=== PATIENT | male | born 1955 | race Caucasian/White ===

== ENCOUNTER 2017-08-22 08:52 | Emergency (ER) | payer OTHER ==
[2017-08-22 09:10] VITALS: BP 144/94
--- NOTE | 2017-08-22 09:31 | RAD ---
HISTORY: Right ankle trauma COMPARISONS: None VIEWS: 3, Frontal, lateral, and oblique views of the right ankle FINDINGS: BONE DENSITY: Normal. BONES: There is no displaced fracture. JOINTS: There is no arthropathy. ALIGNMENT: There is no dislocation. SOFT TISSUES: Unremarkable. OTHER FINDINGS: None. IMPRESSION: NO ACUTE OSSEOUS INJURY. IF SYMPTOMS PERSIST, RECOMMEND REPEAT IMAGING.
--- NOTE | 2017-08-22 09:47 | UC ---
Lower Extremity/Ankle HPI - HPI Summary HPI Summary: right ankle pain x 10 days twisted his right ankle 10 days ago + pain and swelling, not much improvement since the injury - History of Current Complaint Chief Complaint: UCLowerExtremity Stated Complaint: RIGHT ANKLE COMPLAINT Time Seen by Provider: 08/22/17 08:58 Hx Obtained From: Patient Onset/Duration: Sudden Onset, Lasting Days - 10, Still Present Severity Initially: Moderate Severity Currently: Moderate Aggravating Factor(s): Standing, Ambulation Alleviating Factor(s): Rest, Elevation Able to Bear Weight: Yes - Allergies/Home Medications Allergies/Adverse Reactions: Allergies Allergy/AdvReac Type Severity Reaction Status Date / Time Infliximab [From Remicade] Allergy Rash Verified 08/22/17 09:04 PMH/Surg Hx/FS Hx/Imm Hx - Additional Past Medical History Additional PMH: arthritis - Surgical History Surgical History: None - Family History Known Family History: Positive: Hypertension - Social History Alcohol Use: Occasionally Substance Use Type: None Smoking Status (MU): Never Smoked Tobacco - Immunization History Most Recent Influenza Vaccination: June 2016 Review of Systems Constitutional: Negative Skin: Negative Eyes: Negative ENT: Negative Respiratory: Negative Cardiovascular: Negative Is Patient Immunocompromised?: No All Other Systems Reviewed And Are Negative: Yes Physical Exam Triage Information Reviewed: Yes Appearance: Well-Appearing, No Pain Distress, Well-Nourished Vital Signs: Initial Vital Signs Temp 97.9 F 08/22/17 08:55 Pulse 70 08/22/17 08:55 Resp 18 08/22/17 08:55 BP 144/94 08/22/17 08:55 Eyes: Positive: Conjunctiva Clear ENT: Positive: Normal ENT inspection, Hearing grossly normal, Pharynx normal Neck exam: Normal Neck: Positive: Supple, Nontender Respiratory: Positive: Chest non-tender, Lungs clear, Normal breath sounds Cardiovascular: Positive: RRR, No Murmur, Pulses Normal Musculoskeletal: Positive: Other: - right ankle : no swellikng, no erythema, diffuse tenderness, limited rom on plantar flexion and dorsi flexion . limited strength Lower Extremity Course/Dx - Differential Dx/Diagnosis Provider Diagnoses: right ankle sprain Discharge - Discharge Plan Condition: Stable Disposition: HOME Patient Education Materials: Ankle Sprain (ED) Referrals: Cl Dykes DO [Primary Care Provider] - 7 Days
--- OUTSIDE RECORDS SUMMARY | 2017-08-22 13:38 | XMS REPORT | Continuity of Care Document ---
:1955 Author Organization [facility] Address [address], [place] [phone] Phone Care Team Providers Name Role Phone Cl Dykes DO Unavailable Unavailable Luz Wahl Unavailable Unavailable Allergies, Adverse Reactions, Alerts Substance Reaction Severity Status infliximab rash Unknown Active Medications Medication Instructions Dosage Effective Dates Status Comments (start - stop) folic acid 1 mg TAKE TWO TABLETS BY - Active tablet MOUTH EVERY DAY methotrexate sodium take 5 Tablet by 12.5 MG - Active 2.5 mg tablet oral route every week ORENCIA 250 mg IV infuse (750MG) by - Active Solution intravenous route every 4 weeks butalbital-acetamino take 1 Capsule by Not Available - Active phen-caffeine 50 oral route 4 times mg-300 mg-40 mg every day as needed capsule Qvar 40 inhale 2 puff by 80 MCG - Active mcg/actuation inhalation route 2 Metered Aerosol oral times every day inhaler latanoprost 0.005 % instill 1 drop by Not Available - Active Eye Drops ophthalmic route every day into affected eye(s) in the evening ibuprofen 200 mg Cap take 1 capsule 200 MG - Active (200MG) by oral route every 6 hours as needed as needed Problems Condition Effective Dates (start - stop) Clinical Status Body mass index (BMI) 24.0-24.9, adult - Rheumatoid arthritis w/o rheumatoid factor of multiple sites Rheumatoid arthritis w/o rheumatoid factor of multiple sites Other chcf drug therapy Rheumatoid arthritis w/o rheumatoid factor of multiple sites Other long term care administrator drug therapy Dry eye syndrome of bilateral lacrimal glands Rheumatoid arthritis w/o rheumatoid factor of multiple sites Other chcf drug therapy Rheumatoid arthritis w/o rheumatoid factor of multiple sites Other long term care administrator drug therapy Dry eye syndrome of bilateral lacrimal glands Rheumatoid arthritis Rheumatoid arthritis Rheumatoid arthritis w/o rheumatoid factor of multiple sites Rheumatoid arthritis w/o rheumatoid factor of multiple sites Other long term care administrator drug therapy Dry eye syndrome of bilateral lacrimal glands Rheumatoid arthritis w/o rheumatoid factor of multiple sites Rheumatoid arthritis w/o rheumatoid factor of multiple sites Other chcf drug therapy Dry eye syndrome of bilateral lacrimal glands Rheumatoid arthritis, unspecified Other chcf drug therapy Rheumatoid arthritis Rheumatoid arthritis w/o rheumatoid factor of multiple sites Other chcf drug therapy Dry eye syndrome of bilateral lacrimal glands Rheumatoid arthritis w/o rheumatoid factor of multiple sites Rheumatoid arthritis w/o rheumatoid factor of multiple sites Rheumatoid arthritis w/o rheumatoid factor of multiple sites Other long term care administrator drug therapy Pain in lt ankle Rheumatoid arthritis w/o rheumatoid factor of multiple sites Other chcf drug therapy Rheumatoid arthritis w/o rheumatoid factor of multiple sites Other chcf drug therapy Dry eye syndrome of bilateral lacrimal glands Rheumatoid arthritis w/o rheumatoid factor of multiple sites Other long term care administrator drug therapy Rheumatoid arthritis w/o rheumatoid factor of multiple sites Rheumatoid arthritis w/o rheumatoid factor of multiple sites Other chcf drug therapy Dry eye syndrome of bilateral lacrimal glands Pain in lt ankle Rheumatoid arthritis w/o rheumatoid factor of multiple sites Rheumatoid arthritis w/o rheumatoid factor of multiple sites Dry eye syndrome of bilateral lacrimal glands Other long term care administrator drug therapy Rheumatoid arthritis w/o rheumatoid factor of multiple sites Rheumatoid arthritis w/o rheumatoid factor of multiple sites Rheumatoid arthritis w/o rheumatoid factor of multiple sites Rheumatoid arthritis w/o rheumatoid factor of multiple sites Rheumatoid arthritis Rheumatoid arthritis w/o rheumatoid factor of multiple sites Rheumatoid factor negative - Active Neck pain - Active Rotator cuff tear - Active Rheumatoid arthritis - Active Procedures Procedure Date CHEMO, IV INFUSION, 1 HR Abatacept injection (Orencia) 10MG Normal saline solution infus Results Test Name Date and Time Measure Units Reference Range Abnormal Flag Comments Unknown Advance Directives Directive Yes / No Effective Date File Name Unknown Encounters Encounter Practice Location Reason(s) Diagnoses Date Provider Care Team Description For Visit Members Arthritis Arthritis Rheumatoid [facility] arthritis w/o MD Varghese. Provider: [facility] rheumatoid 5794 [facility], [facility], [address] multiple sites [facility] [place], [place], 200, [place], [place], [id number], [place], [address]. [id number], [place]. tel:+ [place] tel:+ [phone] tel:+ [phone] Arthritis Arthritis Nov- Ramiro MITCHELL [facility] 9 [place]. 5794 Provider: Kim Alvarez 7 [facility], 5794 PLLC [place], [address] [place] [address], [facility], [place], 200, [place], [id number], [place], [address]. [id number], tel:+ tel:+ [place] [phone] tel:+ [phone] Arthritis Arthritis Rheumatoid Jul- [facility] arthritis w/o MD Varghese. Provider: Kim vivar 7 5794 Luz Meneses, [facility], 5794 PLLC factor of [address], [facility], [place], 200, [place], [place], [id number], [place], [address]. [id number], [place]. tel:+ [place] tel:+ [phone] tel:+ [phone] Arthritis Arthritis Rheumatoid Michelle Fernando [facility] arthritis w/o Kylee Mcclendon Provider: Kim vivar 7 5794 [facility], 5794 PLLC factor of [facility], [address] [place], sitesOther [place], [address] [place], chcf drug [place], [facility], therapyBody [id number], Eye Center, [id number], mass index [place]. [place], (BMI) tel:+[phone] [place], [address]. tel:+[phone] 24.0-24.9, 977234 tel:[phone] adult [id number] ring Provider: Luz Meneses, [address] [place] [address] 200, [place], [address]. tel:[phone] Arthritis Arthritis Rheumatoid Ramiro MITCHELL Referring [facility] arthritis w/o La. 5794 Provider: Kim Alvarez [address], [facility], 5794 PLLC factor of [place], 739 [facility] multiple sites [place], [address] [place], [place], 200, [place], [id number], [place], [address]. [id number], tel:+[phone] tel:[phone] [place] 730281 572097 tel:[phone] Arthritis Arthritis Rheumatoid Ramiro MITCHELL Referring [facility] arthritis w/o La. 5794 Provider: Kim [address], [facility], 5794 PLLC factor of [place], 739 [facility] multiple sites [place], [address] [place], [place], 200, [place], [id number], [place], [address]. [id number], tel:+[phone] tel:+[phone] [place] [phone] 727220 tel:[phone] Arthritis Arthritis Rheumatoid Juliana TRANSCRIPTION COORDINATOR-C Consulting [facility] Provider: Kim [address] [facility], 5794 PLLC factor of [place], [facility] multiple [place], 1160 [place], sitesOther [place], [facility] [place], chcf drug [id number], [place], therapyDry eye . [facility], [id number], syndrome of tel:+[phone] [place], [place] bilateral 392683 [place], [address]. tel:+[phone] lacrimal tel:[phone] glands [id number] ring Provider: Luz Meneses, 739 [facility] 200, [place], [address]. tel:[phone] Arthritis Arthritis Rheumatoid Ramiro MITCHELL Referring [facility] arthritis w/o La. 5794 Provider: Kim Alvarez [address], PLLC, 5794 PLLC factor of [place], 739 [facility] multiple sites [place], [address] [place], [place], 200, [place], [id number], [place], [address]. [id number], tel:[phone] tel:+[phone] [place] 510608 287050 tel:[phone] Arthritis Arthritis Rheumatoid Alexi- Romaine Consulting [facility] arthritis w/o 7 PA-C Provider: Kim Alvarez [address] [facility], 5794 PLLC factor of 5794 [facility] 1160 [place], sitesOther [place], [facility] [place], long term care administrator drug [place], [place], therapy [place], [facility], [id number], [id number], [place], [address]. tel:[phone] tel:+[phone] tel:[phone] [id number] ring Provider: [facility], [address] [place] [address] 200, [place], [address]. tel:[phone] Arthritis Arthritis Rheumatoid January- Ramiro MITCHELL Referring [facility] arthritis w/o 0- La. 5794 Provider: Kim Alvarez [address], PLLC, 5794 PLLC factor of [place], 739 [facility] multiple sites [place], [address] [place], [place], 200, [place], [id number], [place], [address]. [id number], tel:+[phone] tel:[phone] [place] 348374 994307 tel:[phone] Arthritis Arthritis Rheumatoid January-0 Juliana TRANSCRIPTION COORDINATOR-C Consulting [facility] arthritis w/o 2- [place]. 5794 Provider: Kim Alvarez [address] [facility], 5794 PLLC factor of [place], [facility] multiple [place], 1160 [place], sitesOther [place], [address] [place], long term care administrator drug [id number], [place], therapyDry eye [place]. [facility], [id number], syndrome of tel:[phone] [place], [place] 057146 [place], [address]. tel:[phone] lacrimal tel:[phone] glands [id number] ring Provider: Luz Meneses, [address] 200, [place], [address]. tel:[phone] Arthritis Arthritis Rheumatoid Apr-0 Ramiro MITCHELL Referring [facility] arthritis w/o La. 5794 Provider: Kim Alvarez [address], PLLC, 5794 PLLC factor of [place], [facility] multiple sites [place], [address] [place], [place], 200, [place], [id number], [place], [address]. [id number], tel:[phone] tel:+[phone] [place] 908114 703579 tel:[phone] Arthritis Arthritis Rheumatoid Mar-0 Scott Consulting [facility] arthritis w/o DESIREE Diaz. Provider: Kim [facility] 7 57 [facility], 5794 PLLC factor of [facility] multiple [place], 1160 [place], sitesDry eye [place], [address] [place], syndrome of [place], [place], bilateral [id number], Eye Center, [id number], lacrimal [place]. [place], [place] glandsOther tel:+[phone] [place], [address]. tel:[phone] long term care administrator drug [id number] tel:[phone] therapy [id number] ring Provider: Luz Meneses, [address] 200, [place], [address]. tel:[phone] Arthritis Arthritis Rheumatoid Feb-0 Ramiro MITCHELL Referring [facility] arthritis w/o La. 5794 Provider: Kim Alvarez [address], PLLC, 5794 PLLC factor of [place], [facility] multiple sites [place], [address] [place], [place], 200, [place], [id number], [place], [address]. [id number], tel:+ tel:+[phone] [place] [phone] 719383 tel:[phone] Arthritis Arthritis Rheumatoid Juliana TRANSCRIPTION COORDINATOR-C [facility] arthritis w/o 0-201 [place]. 5794 Provider: Kim Alvarez rheumatoid 7 [facility], 5794 PLLC factor of [place], [facility], [facility] multiple [place], 1160 [place], sitesOther [place], [address] [place], long term care administrator drug [id number], [place], therapyDry eye [place]. [facility], [id number], syndrome of tel:+315 [place], [place] bilateral 885770 [place], [address]. tel:+315 lacrimal tel:[phone] glandsPain in [id number] lt ankle ring Provider: Luz Meneses, 7[facility] 200, [place], [address]. tel: [phone] Arthritis Arthritis Rheumatoid [facility] arthritis w/o 3-201 MD Varghese. Provider: Kim Alvarez rheumatoid 6 5794 Luz Meneses, PLLC, 5794 PLLC factor of [facility] 739 [facility], [facility], [place], 200, [place], [place], [place], [place], [id number], [place], [address]. [id number], [place]. tel: [place] tel:[phone] tel:[phone] Arthritis Arthritis Rheumatoid Ramiro MITCHELL [facility] arthritis w/o 5201 [place]. 5794 Provider: Kim Alvarez rheumatoid 6 [facility], 5794 PLLC factor of [place], [facility], [facility] multiple [place], 1160 [place], sitesOther [place], [address] [place], long term care administrator drug [id number], [place], therapy [place]. [facility], [id number], tel:+[phone] [place], [place] 044682 [place], [address]. tel:+315 tel:[phone] [id number] ring Provider: Luz Meneses, 739 [facility] 200, [place], [address]. tel:[phone] Arthritis Arthritis Rheumatoid Antonio MITCHELL Referring Health Health arthritis Joao. Provider: Kim Alvarez 6 5794 Luz Meneses, PLLC, 5794 PLLC [facility] 739 [facility], [address] [place], [place], 200, [place], [place], [place], [id number], [place], [address]. [id number], [place]. tel:[phone] [place] tel:[phone] tel:[phone] Arthritis Arthritis Rheumatoid Juliana TRANSCRIPTION COORDINATOR-C Consulting [facility] Health arthritis w/o [place]. 5794 Provider: Kim Alvarez [address] [facility], 5794 PLLC factor of [place], [facility], [facility] multiple [place], 1160 [place], sitesOther [place], [address] [place], chcf drug [id number], [place], therapyDry eye [place]. [facility], [id number], syndrome of tel:[phone] [place], [place] 792931 [place], [address]. tel:[phone] lacrimal tel:[phone] glands [id number] ring Provider: Luz [place], [facility] 200, [place], [address]. tel:[phone] Arthritis Arthritis Rheumatoid Ramiro MITCHELL Referring Health Health arthritis w/o [facility] [place]. 5794 Provider: Kim Alvarez [address] Luz Meneses, PLLC, 5794 PLLC factor of [place], 739 [facility] multiple sites [place], [address] [place], [place], 200, [place], [id number], [place], [address]. [id number], tel:[phone] tel:+[phone] [place] 517177 263745 tel:[phone] Arthritis Arthritis Rheumatoid Romaine Consulting Health Health arthritis w/o PA-C Provider: Kim Alvarez [address] [facility], 5794 PLLC factor of 5794 [facility], [facility] 1160 [place], sitesOther [place], [facility] [place], long term care administrator drug [place], [place], [place], [facility], [id number], [id number], [place], [address]. tel:+[phone] tel:+[phone] tel:[phone] [phone] [id number] ring Provider: Luz Meneses, John[address], [place], [address]. tel:[phone] Arthritis Arthritis Rheumatoid Ramiro MITCHELL Referring [facility] arthritis [facility] [place]. 5794 Provider: Kim [address] Gideon, PLLC, 5794 PLLC [place], 739 [facility] [place], [address] [place], [place], 200, [place], [id number], [place], [address]. [id number], tel:+[phone] tel:[phone] [place] [phone] 345893 tel:[phone] Arthritis Arthritis Rheumatoid Ramiro MITCHELL Consulting [facility] arthritis w/o La. 5794 Provider: Kim [address] [facility], 5794 PLLC factor of [place], [facility] [place], 1160 [place], [facility], [facility] [place], long term care administrator drug [id number], [place], therapyPain in [place]. Eye Center, [id number], lt ankle tel:+[phone] [place], [place] 963036 [place], [address]. tel:[phone] tel:[phone] [id number] ring Provider: Luz Meneses [address] 200, [place], [address]. tel:[phone] Arthritis Arthritis Rheumatoid Dec- Ramiro MITCHELL Referring [facility] arthritis w/o La. 5794 Provider: Kim [address] Luz Meneses, PLLC, 5794 PLLC factor of [place], [facility] multiple sites [place], [address] [place], [place], 200, [place], [id number], [place], [address]. [id number], tel:+[phone] tel:+[phone] [place] 230366 269446 tel:[phone] Arthritis Arthritis Rheumatoid Juliana TRANSCRIPTION COORDINATOR-C Consulting [facility] arthritis w/o [place]. 5794 Provider: Kim Alvarez [address] [facility], 5794 PLLC factor of [place], [facility], [facility] multiple [place], 1160 [place], sitesOther [place], [address] [place], long term care administrator drug [id number], [place], therapyDry eye [place]. [place], [id number], syndrome of tel:+[phone] [place], [place] bilateral 524682 [place], [address]. tel:+[phone] lacrimal tel:[phone] glands [id number] ring Provider: Luz Meneses, 7[facility] 200, [place], [address]. tel:[phone] Arthritis Arthritis Rheumatoid Ramiro MITCHELL Referring [facility] arthritis w/o La. 5794 Provider: Kim Alvarez [address] Luz Meneses, [facility], 5794 PLLC factor of [place], 739 [facility] multiple sites [place], [address] [place], [place], 200, [place], [id number], [place], [address]. [id number], tel:+[phone] tel:+[phone] [place] 269040 026639 tel:[phone] Arthritis Arthritis Rheumatoid Juliana TRANSCRIPTION COORDINATOR-C Consulting [facility] arthritis w/o [place]. 5794 Provider: Kim Alvarez [address] [facility], 5794 PLLC factor of [place], [facility], [facility] multiple [place], 1160 [place], sitesOther [place], [address] [place], chcf drug [id number], [place], therapyDry eye [place]. [facility], [id number], syndrome of tel:+[phone] [place], [place] bilateral 247175 [place], [address]. tel:+[phone] lacrimal tel:[phone] glands [id number] ring Provider: Luz Meneses, [address] 200, [place], [address]. tel:[phone] Arthritis Arthritis Rheumatoid Ayesha MITCHELL Referring [facility] arthritis Guilherme. Provider: Kim Alvarez 5 5794 Luz Meneses, PLLC, 5794 PLLC [facility] 739 [facility], [address] [place], [place], 200, [place], [place], [place], [place], [id number], [place], [address]. [id number], [place]. tel:+[phone] [place] tel:[phone] tel:[phone] Arthritis Arthritis Rheumatoid Jul- Juliana TRANSCRIPTION COORDINATOR-C Consulting [facility] arthritis w/o 0 [place]. 5794 Provider: Kim Alvarez [facility] 5 [facility], 5794 PLLC factor of [place], [facility], [facility] multiple [place], 1160 [place], [facility] [place], [address] [place], long term care administrator drug [id number], [place], therapyDry eye [place]. [facility], [id number], syndrome of tel:+[phone] [place], [place] bilateral 138564 [place], [address]. tel:+315 lacrimal tel:[phone] glands [id number] ring Provider: Luz Meneses, John[address], [place], [address]. tel:[phone] Arthritis Arthritis Rheumatoid Nov-0 Husam Referring [facility] arthritis MD Varghese. Provider: Kim Alvarez 5 5794 Luz Meneses, PLLC, 5794 PLLC [facility] 739 Sabino [facility] [place], [address] [place], [place], 200, [place], [place], [place], [place], [id number], [place], [address]. [id number], [place]. tel:+3154 [place] tel:[phone] tel:[phone] Arthritis Arthritis Rheumatoid Oct-0 Juliana TRANSCRIPTION COORDINATOR-C Consulting [facility] arthritis, [place]. 5794 Provider: Kim Alvarez [facility] 5 [facility], 5794 PLLC er chcf [place], [facility], [facility] drug therapy [place], 1160 [place], [place], [facility], [id number], [facility], [place]. Eye Center, [id number], tel:+[phone] [facility] 329099 [place], [address]. tel:[phone] tel:[phone] [id number] ring Provider: Luz Meneses, John[address] 200, [place], [address]. tel:[phone] Arthritis Arthritis Dec-2 Juliana TRANSCRIPTION COORDINATOR-C Consulting [facility] [place]. 5794 Provider: Kim Alvarez [address] [place] [address] [facility], 5794 [facility], [facility], [facility] [place], 1160 [place], [place], [facility] [place], [id number], [facility], [place]. [facility], [id number], tel:+[phone] [facility] [place] 14[address] [place], [address]. tel:+[phone] tel:[phone] [id number] ring Provider: Marcelino Velasquez [address], [place], [address]. tel:[phone] Arthritis Arthritis Mar-0 Juliana TRANSCRIPTION COORDINATOR-C Referring [facility] [place]. 5794 Provider: Kim Alvarez [address] [place] [address] Luz Meneses, [facility], 5794 [facility], [facility], [address] [place], [place], 200, [place], [id number], [place], [address]. [id number], tel:[phone] tel:[phone] tel:[phone] Arthritis Arthritis Ramiro MITCHELL Referring [facility] 4 [facility] [place]. 5794 Provider: [facility] 3 [facility], [facility], 5794 [facility], 739 [facility], [facility], [place], 200, [place], [id number], [place], [address]. [id number], tel:+[phone] tel:+[phone] [place] 847186 005616 tel:[phone] Arthritis Arthritis May-3 Juliana TRANSCRIPTION COORDINATOR-C Referring [facility] 0 [facility]. 5794 Provider: [facility] 3 [facility], [facility], 5794 [facility], 739 [facility], [facility], [place], 200, [place], [id number], [place], [address]. [id number], tel:[phone] tel:+[phone] [place] 925149 618149 tel:[phone] Arthritis Arthritis Apr-0 Juliana TRANSCRIPTION COORDINATOR-C Referring [facility] 4 [facility]. 5794 Provider: [facility] 3 [facility], [facility], 5794 [facility], 739 [facility], [place], 200, [place], [id number], [place], [address]. [id number], tel:[phone] tel:+[phone] [place] 908129 315077 tel:[phone] Arthritis Arthritis Jun- Juliana TRANSCRIPTION COORDINATOR-C Referring [facility] 8201 [facility]. 5794 Provider: [facility] 2 [facility], [facility], 5794 [facility], 739 [facility], [place], 200, [place], [id number], [place], [address]. [id number], tel:+[phone] tel:+[phone] [place] 009767 930467 tel:[phone] Arthritis Arthritis May-0 Ramiro MITCHELL Referring [facility] Health 3-201 [facility] [place]. 5794 Provider: Associates [facility] 1 [facility] Luz Meneses, [facility], 5794 [facility], 739 [address] [facility] [place], Oniele Ari[address] [place], [place], 200, [place], [id number], [place], [address]. [id number], tel:[phone] tel:[phone] tel:[phone] Family History Family Member Diagnosis Age At Onset Status Father Gout N Mother Osteoarthritis N Immunizations Vaccine Date Status Comments Influenza, injectable, completed - Completed reason: New quadrivalent, split virus, 18 years or older Afluria Quad Yet to receive Flu vaccine completed - Completed reason: Source Unspecified Yet to receive Flu vaccine completed - Completed reason: Other Provider Yet to receive Flu vaccine completed - Completed reason: Other Provider Not receiving Zoster completed - Completed reason: New Unable to have Zoste completed - Completed reason: New Never had completed - Completed reason: Source Unspecified Never had completed - Completed reason: Source Unspecified Influenza, injectable, completed - Completed reason: Other trivalent, split virus, 4 years Provider and older, Fluvirin Payers Payer name Insurance type Covered libertarian ID Authorization(s) [employer] [id number] [employer] No Referral Required CI [id number] Social History Type Description Quantity Date Captured Alcohol Use Details No Caffeine Use Details No Tobacco Use Status No Smoking Status No Vital Signs Date / Height Weight BMI Pulse Blood Temperature Respiratory Body Head BMI Time: Rate Pressure Rate Surface Circumference percentile Area 73.00 188.00 24.8 60 128/70 97.20 F 16 /min 2./ in lbs 0 /min mm[Hg] meter(2) 09:13: kg/m 00 eter (2) 62 126/64 16 /min -2017/ /min mm[Hg] 10:02: 00 Chief Complaint And Reason For Visit Unknown Chief Complaint And Reason For Visit Reason For Referral Reason For Referral Unknown Plan Of Care Date Type Action Status Goal Lifestyle education regarding diet completed Referral Ordered: ordered *CHEST X-RAY, 2 VIEWS, FRONTAL, LATERAL Appointment John Hackett BOOKED Appointment John Hackett BOOKED Date Type Problem Goal Intervention Status Start Date Unknown. History Of Present Illness Encounter Date Complaint History Of Present Illness This patient has no known history of present illness Functional Status Encounter Date Functional Assessment Cognitive Assessment Unknown Medications Administered Medication Instructions Dosage Effective Dates (start - stop) Status Comments Drug Treatment Unknown Instructions Date Instruction Additional Information Lifestyle education regarding diet Related to Body mass index ( BMI) 24.0-24.9, adult Reviewed importance of compliance/adherence to medications prescribed Avoid live vaccines Conservative medical care measures discussed. Moderate activities regarding symptomatic joints. Labs ordered to check disease activity. Labs ordered to check blood counts, liver and kidney functions to monitor safety of medication. Daily range of motion exercises for symptomatic joints recommended. Discussed / Reviewed Labs hold medication and call if any side effect develops continue same medication plan call if symptoms worsen Discussed the need to hold DMARDS/Biologics before and after surgery/procedure. Risks/benefits of medications reviewed Labs ordered to check disease activity. Labs ordered to check blood counts, liver and kidney functions to monitor safety of medication. Discussed / Reviewed Labs continue same medication plan call if symptoms worsen Reviewed importance of compliance/adherence to medications prescribed Avoid live vaccines Exercise more Discussed importance of holding DMARDs/ biologics if patient develops an infection and to notify the treating physician Stretching Reviewed importance of compliance/adherence to medications prescribed Diet: avoid alcohol Avoid live vaccines Exercise more Discussed importance of holding DMARDs/ biologics if patient develops an infection and to notify the treating physician Stretching Reviewed importance of compliance/adherence to medications prescribed Diet: avoid alcohol Avoid live vaccines Discussed importance of holding DMARDs/ biologics if patient develops an infection and to notify the treating physician Stretching Reviewed importance of compliance/adherence to medications prescribed Diet: avoid alcohol Avoid live vaccines Discussed importance of holding DMARDs/ biologics if patient develops an infection and to notify the treating physician Stretching Reviewed importance of compliance/adherence to medications prescribed Avoid live vaccines Exercise more Discussed importance of holding DMARDs/ biologics if patient develops an infection and to notify the treating physician Stretching Diet: avoid alcohol Risks/benefits of medications reviewed Diagnostic studies discussed/reviewed: Labs Labs ordered to check disease activity. Labs ordered to check blood counts, liver and kidney functions to monitor safety of medication. Discussed / Reviewed Labs continue same medication plan call if symptoms worsen Reviewed importance of compliance/adherence to medications prescribed Avoid live vaccines Discussed importance of holding DMARDs/ biologics if patient develops an infection and to notify the treating physician Avoid live vaccines Exercise more Discussed importance of holding DMARDs/ biologics if patient develops an infection and to notify the treating physician Stretching Reviewed importance of compliance/adherence to medications prescribed
--- OUTSIDE RECORDS SUMMARY | 2017-08-22 13:38 | XMS REPORT | Continuity of Care Document ---
:1955 Author Organization [facility] Address [address], [place] [id number] Phone Care Team Providers Name Role Phone [...] w/o rheumatoid factor of multiple sites Other technician terminal and repeater drug therapy Rheumatoid arthritis w/o rheumatoid factor of multiple sites Other shelter drug therapy Dry eye syndrome of bilateral lacrimal glands Rheumatoid arthritis w/o rheumatoid factor of multiple sites Other technician terminal and repeater drug therapy Rheumatoid arthritis w/o rheumatoid factor of multiple sites Rheumatoid arthritis w/o rheumatoid factor of multiple sites Other technician terminal and repeater drug therapy Dry eye syndrome of bilateral lacrimal glands Rheumatoid arthritis Rheumatoid arthritis Rheumatoid arthritis w/o rheumatoid factor of multiple sites Rheumatoid arthritis w/o rheumatoid factor of multiple sites Other technician terminal and repeater drug therapy Dry eye syndrome of bilateral lacrimal glands Rheumatoid arthritis w/o rheumatoid factor of multiple sites Rheumatoid arthritis w/o rheumatoid factor of multiple sites Other shelter drug therapy Dry eye syndrome of bilateral lacrimal glands Rheumatoid arthritis w/o rheumatoid factor of multiple sites Other shelter drug therapy Rheumatoid arthritis, unspecified Other technician terminal and repeater drug therapy Rheumatoid arthritis Rheumatoid arthritis w/o rheumatoid factor of multiple sites Other shelter drug therapy Dry eye syndrome of bilateral lacrimal glands Rheumatoid arthritis w/o rheumatoid factor of multiple sites Rheumatoid arthritis w/o rheumatoid factor of multiple sites Rheumatoid arthritis w/o rheumatoid factor of multiple sites Other shelter drug therapy Pain in lt ankle Rheumatoid arthritis w/o rheumatoid factor of multiple sites Other shelter drug therapy Rheumatoid arthritis w/o rheumatoid factor of multiple sites Other technician terminal and repeater drug therapy Dry eye syndrome of bilateral lacrimal glands Rheumatoid arthritis w/o rheumatoid factor of multiple sites Rheumatoid arthritis w/o rheumatoid factor of multiple sites Other shelter drug therapy Dry eye syndrome of bilateral lacrimal glands Pain in lt ankle Rheumatoid arthritis w/o rheumatoid factor of multiple sites Rheumatoid arthritis w/o rheumatoid factor of multiple sites Dry eye syndrome of bilateral lacrimal glands Other technician terminal and repeater drug therapy Rheumatoid arthritis w/o rheumatoid factor of multiple sites Rheumatoid arthritis w/o rheumatoid factor of multiple sites Rheumatoid arthritis w/o rheumatoid factor of multiple sites Rheumatoid arthritis w/o rheumatoid factor of multiple sites Rheumatoid arthritis w/o rheumatoid factor of multiple sites Rheumatoid arthritis Rheumatoid factor negative - Active Neck pain - Active Rotator cuff tear - Active Rheumatoid arthritis - Active Procedures Procedure Date Unknown Results Test Name Date and Time Measure Units Reference Range Abnormal Flag Comments Unknown Advance Directives Directive Yes / No Effective Date File Name Unknown Encounters Encounter Practice Location Reason(s) Diagnoses Date Provider Care Team Description For Visit Members Arthritis Arthritis Rheumatoid [facility] arthritis w/o MD Varghese. Provider: Kim Alvarez rheumatoid 7 5794 [facility], [facility], [address] multiple sites [place], [facility], [place], 200, [place], [place], [place], [id number], [place], [address]. [id number], [place]. tel:+ [place] tel:+ [phone] tel:+ [phone] Arthritis Arthritis Ramiro MITCHELL [facility] [place]. 5794 [facility] 7 [facility], 5794 PLLC [facility] [place], [place], [place], [place], [id number], [place], [place]. [id number], tel:+[phone] [place] [phone] tel:[phone] Arthritis Arthritis Ramiro MITCHELL [facility] [place]. 5794 Provider: Kim [facility] 7 [facility], PLLC, 5794 PLLC [place], 739 [facility], [facility], [place], 200, [place], [id number], [place], [address]. [id number], tel:+ tel:+[phone] [place] [phone] tel:[phone] Arthritis Arthritis Rheumatoid [facility] arthritis w/o MD Varghese. Provider: [facility] Associates rheumatoid 7 5794 [facility], [facility], 5794 PLLC factor of [facility] 739 [facility] sites [place], [facility], [place], 200, [place], [place], [id number], [place], [address]. [id number], [place]. tel:+ [place] tel:+ [phone] tel:+ [phone] Arthritis Arthritis Rheumatoid [facility] arthritis w/o Kylee Mcclendon Provider: Associates Associates rheumatoid 7 5794 [facility], 5794 PLLC factor of [facility] [address], 1160 [place], sitesOther [place], [address] [place], shelter drug [place], [place], therapyBody [id number], [facility], [id number], mass index [place]. [place], (BMI) tel:+[phone] [place], [address]. tel:[phone] 24.0-24.9, 656498 tel:[phone] adult [id number] ring Provider: Luz Meneses, Marcelino [address], [place], [address]. tel:[phone] Arthritis Arthritis Rheumatoid Ramiro MITCHELL Referring [facility] arthritis w/o [place]. 5794 Provider: Kim Alvarez [address] [place], [facility], 5794 PLLC factor of [place], [address] [place] [address] multiple sites [place], Ave [address] [place], [place], 200, [place], [id number], [place], [address]. [id number], tel:+[phone] tel:[phone] [place] 176199 887302 tel:[phone] Arthritis Arthritis Rheumatoid Ramiro MITCHELL Referring [facility] arthritis w/o [place]. 5794 Provider: Kim [address], [facility], 5794 PLLC factor of [place], [address] [place] [address] multiple sites [place], [address] [place], [place], 200, [place], [id number], [place], [address]. [id number], tel:+[phone] tel:[phone] [place] [phone] tel:[phone] Arthritis Arthritis Rheumatoid Apr- Juliana SIGN LANGUAGE TEACHER-C Consulting [facility] arthritis w/o [facility] 5794 Provider: Kim [address] [facility] PLL, 5794 PLLC factor of [place], [facility] multiple [place], 1160 [place], sitesOther [place], [address] [place], technician terminal and repeater drug [id number], [place], therapyDry eye . [facility] Center, [id number], syndrome of tel:+1-3154 [place], [place] 6[address]13 [place], [address]. tel:+[phone] lacrimal tel:[phone] glands [id number] ring Provider: Luz Meneses, Marcelino [address], [place], [address]. tel:[phone] Arthritis Arthritis Rheumatoid Mar- Ramiro MITCHELL Referring [facility] arthritis w/o 5-201 [place]. 5794 Provider: Kim Alvarez [address] Luz Meneses, PLLC, 5794 PLLC factor of [address] multiple sites [place], [facility] [place], 200, [place], [id number], [place], [address]. [id number], tel:+[phone] tel:[phone] [place] 148410 618731 tel:[phone] Arthritis Arthritis Rheumatoid Feb- Romaine Consulting [facility] arthritis w/o 7 PA-C Provider: Kim Rojas Brayden. [facility], 5794 PLLC factor of 5794 [facility] 1160 [place], [facility], [facility] [place], shelter drug [place], [place], therapy [place], [facility], [id number], [id number], [place], [address]. tel:[phone] tel:+[phone] tel:[phone] [id number] ring Provider: Luz Meneses, [address] [place] [address] 200, [place], [address]. tel:[phone] Arthritis Arthritis Rheumatoid January-[address] [facility] arthritis w/o 0-201 [place]. 5794 Provider: Kim Alvarez [address] [place], PLLC, 5794 PLLC factor of [address] multiple sites [place], Ave [facility] [place] [place], 200, [place], [id number], [place], [address]. [id number], tel:+[phone] tel:+[phone] [place] 830989 379955 tel:[phone] Arthritis Arthritis Rheumatoid January-0 Juliana SIGN LANGUAGE TEACHER-C Consulting [facility] arthritis w/o 2-201 [place]. 5794 Provider: Kim vivar [address] [place] [address] [facility], 5794 PLLC factor of [facility], [facility] multiple [place], 1160 [place], sitesOther [place], [address] [place], shelter drug [id number], [place], therapyDry eye [place]. [facility], [id number], syndrome of tel:+1-3154 [place], [place] 933537 [place], [address]. tel:+[phone] lacrimal tel:[phone] glands [id number] ring Provider: Luz Meneses, [address], [place], [address]. tel:[phone] Arthritis Arthritis Rheumatoid Apr-[address] [facility] arthritis w/o [place]. 5794 Provider: Kim vivar [address] [place] [address] Luz Meneses, PLLC, 5794 PLLC factor of [place], [address] [place] [address] sites [place], [address] [place], [place], 200, [place], [id number], [place], [address]. [id number], tel:+[phone] tel:[phone] [place] 260429 616451 tel:[phone] Arthritis Arthritis Rheumatoid Mar-[address] [facility] arthritis w/o DESIREE Diaz. Provider: Kim vivar 7 57 [facility], 5794 PLLC factor of [facility], [facility] multiple [place], 1160 [place], sitesDry eye [place], [address] [place], syndrome of [place], [place], bilateral [id number], Eye Center, [id number], lacrimal [place]. [place], [place] glandsOther tel:+[phone] [place], [address]. tel:[phone] technician terminal and repeater drug [id number] tel:[phone] therapy [id number] ring Provider: Luz Meneses, [address], [place], [address]. tel:[phone] Arthritis Arthritis Rheumatoid Feb-[address] [facility] arthritis w/o [place]. 5794 Provider: Kim Rojas [facility] Luz Meneses, PLLC, 5794 PLLC factor of [place], 739 [facility] multiple sites [place], [address] [place], [place], 200, [place], [id number], [place], [address]. [id number], tel:+[phone] tel:[phone] [place] 979888 659203 tel:[phone] Arthritis Arthritis Rheumatoid Juliana SIGN LANGUAGE TEACHER-C Consulting [facility] arthritis w/o 0201 [place]. 5794 Provider: Kim Alvarez rheumatoid 7 [facility], 5794 PLLC factor of [place], [facility], [facility] multiple [place], 1160 [place], sitesOther [place], [address] [place], technician terminal and repeater drug [id number], [place], therapyDry eye [place]. [facility], [id number], syndrome of tel:+1-3154 [place], [place] bilateral 425360 [place], [address]. tel:+[phone] lacrimal tel:[phone] glandsPain in [id number] lt ankle ring Provider: Luz Meneses, [address], [place], [address]. tel:[phone] Arthritis Arthritis Rheumatoid Kathie Referring [facility] arthritis w/o MD Varghese. Provider: Kim Alvarez rheumatoid 6 5794 [facility] [place], PLLC, 5794 PLLC factor of [facility] 739 [facility] multiple sites [place], [facility] [place], [place], 200, [place], [place], [place], [id number], [place], [address]. [id number], [place]. tel:+[phone] [place] tel:[phone] tel:[phone] Arthritis Arthritis Rheumatoid Ramiro MITCHELL Consulting [facility] arthritis w/o [place]. 5794 Provider: Kim Alvarez rheumatoid 6 [facility], 5794 PLLC factor of [place], [facility], [facility] multiple [place], 1160 [place], sitesOther [place], [address] [place], shelter drug [id number], [place], therapy [place]. [facility], [id number], tel:+[phone] [place], [place] 747[place], [address]. tel:[phone] tel:[phone] [id number] ring Provider: Luz Meneses, [address], [place], [address]. tel:[phone] Arthritis Arthritis Rheumatoid Antonio MITCHELL Referring [facility] arthritis Joao. Provider: Kim Alvarez 5794 Luz Meneses, [facility], 5794 PLLC [facility] 739 Sabino [facility], Ave [address] [place], [place], 200, [place], [place], [place], [id number], [place], [address]. [id number], [place]. tel:+[phone] [place] tel:[phone] tel:[phone] Arthritis Arthritis Rheumatoid Juliana MONTES DE OCA Consulting [facility] arthritis w/o [place]. 5794 Provider: Kim Alvarez [address] [facility], 5794 PLLC factor of [place], [facility], [facility] multiple [place], 1160 [place], sitesOther [place], [address] [place], shelter drug [id number], [place], therapyDry eye [place]. [facility], [id number], syndrome of tel:+[phone] [place], [place] bilateral 18[address]95 [place], [address]. tel:+[phone] lacrimal tel:[phone] [facility] [id number] ring Provider: Luz Meneses, [address], [place], [address]. tel:[phone] Arthritis Arthritis Rheumatoid Ramiro MITCHELL Referring [facility] arthritis w/o La. 5794 Provider: Kim Alvarez [address] Luz Meneses, [facility], 5794 PLLC factor of [place], 7[facility] multiple sites [place], [address] [place], [place], 200, [place], [id number], [place], [address]. [id number], tel:+[phone] tel:+[phone] [place] 206037 210064 tel:[phone] Arthritis Arthritis Rheumatoid Romaine Consulting [facility] arthritis w/o 2 PA-C Provider: Kim Al[place] [address] Brayden. [facility], 5794 PLLC factor of 5794 [facility], [facility] multiple [facility] 1160 [place], sitesOther [place], [address] [place], technician terminal and repeater drug [place], [place], therapy [place], [facility], [id number], [id number], [place], [address]. tel:+[phone] tel:+3154 tel:[phone] 113594Cttpb ring Provider: Marcelino Velasquez [address], [place], [address]. tel:[phone] Arthritis Arthritis Rheumatoid Ramiro MITCHELL Referring [facility] arthritis La. 5794 Provider: Kim Alvarez [address] [place] [address] Luz Meneses, PLLC, 5794 PLLC [place], 739 [facility] [place], [address] [place], [place], 200, [place], [id number], [place], [address]. [id number], tel:+[phone] tel:+[phone] [place] 300978 353920 tel:[phone] Arthritis Arthritis Rheumatoid Ramiro MITCHELL Consulting [facility] arthritis w/o La. 5794 Provider: Kim Alvarez [address] [facility], 5794 PLLC factor of [place], [facility] [place], 1160 [place], sitesOther [place], [address] [place], technician terminal and repeater drug [id number], [place], therapyPain in [place]. Eye [facility], [id number], lt ankle tel:+1-3154 [place], [place] 88[address] [place], [address]. tel:+[phone] tel:[phone] [id number] ring Provider: Marcelino Velasquez [address], [place], [address]. tel:[phone] Arthritis Arthritis Rheumatoid Dec- Ramiro MITCHELL Referring [facility] arthritis w/o 8201 [place]. 5794 Provider: Kim Alvarez [address] Luz [place], [facility], 5794 PLLC factor of [place], 739 [facility] multiple sites [place], Ave Ra[address] [place], [place], 200, [place], [id number], [place], [place], [address]. [id number], tel:+[phone] tel:+[phone] [place] 692671 463251 tel:[phone] Arthritis Arthritis Rheumatoid Nov- Juliana SIGN LANGUAGE TEACHER-C Consulting [facility] arthritis w/o [place]. 5794 Provider: Kim Alvarez [address] [facility], 5794 PLLC factor of [place], [facility], [facility] multiple [place], 1160 [place], sitesOther [place], [facility] [place], technician terminal and repeater drug [id number], [place], therapyDry eye . [facility], [id number], syndrome of tel:+1-3154 [place], [place] bilateral 989842 [place], [address]. tel:+[phone] lacrimal tel:[phone] glands [id number] ring Provider: Luz Gideon, 739 [facility] 200, [place], [address]. tel:[phone] Arthritis Arthritis Rheumatoid Ramiro MITCHELL Referring [facility] arthritis w/o 2 La. 5794 Provider: Kim Alvarez [address], PLLC, 5794 PLLC factor of [place], 739 [facility] multiple sites [place], [facility] [place], 200, [place], [id number], [place], [address]. [id number], tel:+[phone] tel:+[phone] [place] 902656 753869 tel:[phone] Arthritis Arthritis Rheumatoid Shin- Juliana SIGN LANGUAGE TEACHER-C Consulting [facility] arthritis w/o 5201 [place]. 5794 Provider: Kim Alvarez [address] [facility], 5794 PLLC factor of [place], [facility], [facility] multiple [place], 1160 [place], sitesOther [place], [facility] [place], technician terminal and repeater drug [id number], [place], therapyDry eye [place]. [facility], [id number], syndrome of tel:+1-3154 [place], [place] bilateral 777418 [place], [address]. tel:[phone] lacrimal tel:[phone] glands [id number] ring Provider: Marcelino Velasquez [address], [place], [address]. tel:[phone] Arthritis Arthritis Rheumatoid Ayesha MITCHELL Referring [facility] arthritis Guilherme. Provider: Kim Alvarez 5794 RUDOLPH VelasquezC, [address], [address] [place], [place], 200, [place], [place], [place], [id number], [place], [address]. [id number], [place]. tel:+[phone] [place] tel:[phone] tel:[phone] Arthritis Arthritis Rheumatoid Nov-3 Juliana SIGN LANGUAGE TEACHER-C Consulting [facility] arthritis w/o 0-201 [place]. 5794 Provider: Kim Alvarez [address] [facility], 5794 PLLC factor of [place], [facility], [facility] multiple [place], 1160 [place], sitesOther [place], [facility] [place], technician terminal and repeater drug [id number], [place], therapyDry eye [place]. [facility], [id number], syndrome of tel:+1-3154 [place], [place] bilateral 696985 [place], [address]. tel:+[phone] lacrimal tel:[phone] glands [id number] ring Provider: Marcelino Velasquez [address], [place], [address]. tel:[phone] Arthritis Arthritis Rheumatoid Nov-[address] [address] [facility] arthritis 2-201 MD Varghese. Provider: Kim Alvarez 5794 RUDOLPH VelasquezC, [address] PLLC [address], [address] [place], [place], 200, [place], [place], [place], [id number], [place], [address]. [id number], [place]. tel:[phone] tel:[phone] tel:[phone] Arthritis Arthritis Rheumatoid Oct-0 Juliana SIGN LANGUAGE TEACHER-C Consulting [facility] arthritis, - [place]. 5794 Provider: Kim Alvarez [address], 5794 PLL er shelter [place], [facility] drug therapy [place], 1160 [place], [place], [facility], [id number], [place], [place]. [facility], [id number], tel:+[phone] [facility] 788018 [place], [address]. tel:+[phone] tel:[phone] [id number] ring Provider: Luz Meneses [address] [place], [place] [address]e [address]k [address], [place], [address]. tel:[phone] Arthritis Arthritis Dec-2 Juliana SIGN LANGUAGE TEACHER-C Consulting [facility] -201 [place]. 5794 Provider: Kim Alvarez [address] [place] [address] [facility], 5794 [facility], [facility], [facility] [place], 1160 [place], [place], [facility] [place], [id number], [place], [place]. [facility], [id number], tel:+[phone] [facility] 995531 [place], [address]. tel:+[phone] tel:[phone] 295654Ngfiy ring Provider: John Velasquez[address], [place], [address]. tel:[phone] Arthritis Arthritis Mar-0 Juliana SIGN LANGUAGE TEACHER-C Referring [facility] Health - [place]. 5794 Provider: Kim Alvarez [address] [place] [address] Luz Meneses, [facility], 5794 PLLC [place], 739 Sabino [facility] [place], [address] [place], [place], 200, [place], [id number], [place], [address]. [id number], tel:+[phone] tel:+3154 [place] 255106 659734 tel:[phone] Arthritis Arthritis Nov Ramiro MITCHELL Referring [facility] Health 4 [facility]. 5794 Provider: Kim Alvarez [address] [facility], [facility], 5794 [facility], 739 [facility] [place], [facility], [place], 200, [place], [id number], [place], [address]. [id number], tel:+[phone] tel:[phone] [place] 612250 877390 tel:[phone] Arthritis Arthritis January-3 Juliana SIGN LANGUAGE TEACHER-C Referring Health Health 0-201 [place]. 5794 Provider: Kim Alvarez 3 [facility], [facility], 5794 [facility], 739 [facility] [place], [facility], [place], 200, [place], [id number], [place], [address]. [id number], tel:+3154 tel:+3154 [place] 759379 257517 tel:[phone] Arthritis Arthritis Dec-0 Juliana SIGN LANGUAGE TEACHER-C Referring [facility] Health 4201 [place]. 5794 Provider: Kim Alvarez 3 [facility], 5794 [facility], 739 [facility] [place], [facility], [place], 200, [place], [id number], [place], [address]. [id number], tel:+[phone] tel:[phone] 184008 tel:[phone] Arthritis Arthritis Oct- Juliana SIGN LANGUAGE TEACHER-C Referring [facility] Health 8201 [place]. 5794 Provider: Kim Alvarez 2 [facility], 5794 [facility], 739 [facility] [place], [facility], [place], 200, [place], [id number], [place], [address]. [id number], tel:[phone] tel:[phone] 663628 601419 tel:[phone] Arthritis Arthritis Ramiro MITCHELL Referring [facility] 39Clarita Provider: Associates Associates 1 [facility] Luz Meneses, [facility], 5794 [facility], 739 Sabino [facility] [place], [address] [place], [place], 200, [place], [id number], [place], [address]. [id number], tel:3844 tel:[phone] 911161 tel:[phone] Family History Family Member Diagnosis Age At Onset Status Father Gout N Mother Osteoarthritis N Immunizations Vaccine Date Status Comments Influenza, injectable, completed - Completed reason: New quadrivalent, split virus, 18 years or older Afluria Quad 1184-6550 Yet to receive Flu vaccine completed - [...] Fluvirin Payers Payer name Insurance type Covered green party ID Authorization(s) [employer] [id number] [employer] No Referral Required CI [employer] CI [id number] Social History Type Description Quantity Date Captured Unknown Vital Signs Date / Height Weight BMI Pulse Blood Temperature Respiratory Body Head BMI Time: Rate Pressure Rate Surface Circumference percentile Area Unknown Chief Complaint And Reason For Visit Unknown Chief Complaint And Reason For Visit Reason For Referral Reason For Referral Unknown Plan Of Care Date Type Action Status Goal Lifestyle education regarding diet completed Referral Ordered: ordered *CHEST X-RAY, 2 VIEWS, FRONTAL, LATERAL Appointment John Hackett BOOKED Shin-09-2018 Appointment John Hackett BOOKED Date Type Problem [...]
--- OUTSIDE RECORDS SUMMARY | 2017-08-22 13:39 | XMS REPORT | Continuity of Care Document ---
:1955 Author Organization [facility] Address [address], [place] [id number] Phone Care Team Providers Name Role Phone [...] Active Solution intravenous route every 4 weeks latanoprost 0.005 % instill 1 drop by Not Available - Active Eye Drops ophthalmic route every day into affected eye(s) in the evening ibuprofen 200 mg Cap take 1 capsule 200 MG - Active (200MG) by oral route every 6 hours as needed as needed Qvar 40 inhale 2 puff by 80 MCG - Active mcg/actuation inhalation route 2 Metered Aerosol oral times every day inhaler butalbital-acetamino take 1 Capsule by Not Available - Active phen-caffeine 50 oral route 4 times mg-300 mg-40 mg every day as needed capsule Problems Condition Effective Dates (start - stop) Clinical Status Body mass index (BMI) 24.0-24.9, adult - Rheumatoid arthritis w/o rheumatoid factor of multiple sites Other salvage determiner drug therapy Dry eye syndrome of bilateral lacrimal glands Rheumatoid arthritis w/o rheumatoid factor of multiple sites Other salvage determiner drug therapy Other salvage determiner drug therapy Rheumatoid arthritis w/o rheumatoid factor of multiple sites Other [facility] drug [facility] Rheumatoid arthritis w/o rheumatoid factor of multiple sites Dry eye syndrome of bilateral lacrimal glands Rheumatoid arthritis w/o rheumatoid factor of multiple sites Other salvage determiner drug therapy Rheumatoid arthritis w/o rheumatoid factor of multiple sites Other salvage determiner drug therapy Pain in lt ankle Rheumatoid arthritis w/o rheumatoid factor of multiple sites Rheumatoid arthritis, unspecified Other salvage determiner drug therapy Rheumatoid arthritis w/o rheumatoid factor of multiple sites Rheumatoid arthritis Dry eye syndrome of bilateral lacrimal glands Other salvage determiner drug therapy Rheumatoid arthritis w/o rheumatoid factor of multiple sites Rheumatoid arthritis Rheumatoid arthritis w/o rheumatoid factor of multiple sites Rheumatoid arthritis w/o rheumatoid factor of multiple sites Other [facility] drug therapy Dry eye syndrome of bilateral lacrimal glands Rheumatoid arthritis w/o rheumatoid factor of multiple sites Rheumatoid arthritis w/o rheumatoid factor of multiple sites Rheumatoid arthritis w/o rheumatoid factor of multiple sites Rheumatoid arthritis Rheumatoid arthritis Rheumatoid arthritis w/o rheumatoid factor of multiple sites Rheumatoid arthritis w/o rheumatoid factor of multiple sites Other [facility] drug therapy Rheumatoid arthritis w/o rheumatoid factor of multiple sites Dry eye syndrome of bilateral lacrimal glands Other salvage determiner drug therapy Pain in lt ankle Dry eye syndrome of bilateral lacrimal glands Other salvage determiner drug therapy Rheumatoid arthritis w/o rheumatoid factor of multiple sites Rheumatoid arthritis w/o rheumatoid factor of multiple sites Rheumatoid arthritis w/o rheumatoid factor of multiple sites Rheumatoid arthritis w/o rheumatoid factor of multiple sites Dry eye syndrome of bilateral lacrimal glands Other salvage determiner drug therapy Rheumatoid arthritis w/o rheumatoid factor of multiple sites Dry eye syndrome of bilateral lacrimal glands Other salvage determiner drug therapy Rheumatoid arthritis w/o rheumatoid factor of multiple sites Rheumatoid arthritis w/o rheumatoid factor of multiple sites Rheumatoid factor negative - Active Neck pain - Active Rotator cuff tear - Active Rheumatoid arthritis - Active Procedures Procedure Date IMMUNIZATION ADMIN FLU VACCINE AFLURIA Results Test Name Date and Time Measure Units Reference Range Abnormal Flag Comments Unknown Advance Directives Directive Yes / No Effective Date File Name Unknown Encounters Encounter Practice Location Reason(s) Diagnoses Date Provider Care Team Description For Visit Members Arthritis Arthritis Ramiro MITCHELL [facility] 9-201 [place]. 0440 Provider: Kim Alvarez 7 [facility], [facility], 5794 [facility], [address] [place] [address] Hortencia Macias [place], [place], 200, [place], [id number], [place], [place], [address]. [id number], tel:[phone] tel:+[phone] [place] [phone] tel:[phone] Arthritis Arthritis Rheumatoid Husam Referring [facility] arthritis w/o MD Varghese. Provider: Kim Alvarez rheumatoid 7 5794 Luz Meneses, PLLC, 5794 PLLC factor of [facility] 7[facility] multiple sites [facility], e [facility], [place], 200, [place], [place], [place], [place], [id number], [place], [address]. [id number], [place]. tel:+315 [place] tel:[phone] tel:[phone] Arthritis Arthritis Body mass Michelle Fernando [facility] Health index (BMI) 1-201 Kylee Mcclendon Provider: Kim Alvarez 24.0-24.9, 7 5794 [facility], [address] [facility] salvage [address]iner [address], [address] [place], therapyRheumat [place], [facility] [place], oid arthritis [place], [place], w/o rheumatoid [id number], [facility], [id number], factor of [place]. [facility] multiple sites tel:+[address] [place], [address]. tel:[phone] tel:[phone] ring Provider: Luz Meneses, 739 [facility] 200, [place], [address]. tel:[phone] Arthritis Arthritis Rheumatoid Ramiro MITCHELL [facility] arthritis w/o La. 5794 Provider: Kim Alvarez [facility] 7 [facility] Luz Meneses, PLLC, 5794 PLLC factor of [place], [address] [place] [address] multiple sites [place], Ave [facility] [place], [place], 200, [place], [id number], [place], [address]. [id number], tel:+[phone] tel:+[phone] [place] [phone] 422501 tel:[phone] Arthritis Arthritis Rheumatoid Ramiro MITCHELL Referring Health Health arthritis w/o La. 5794 Provider: Kim [address] Gideon, PLLC, 5794 PLLC factor of [place], 739 [facility] multiple sites [place], Ave Arik [place], [place], 200, [place], [id number], [place], [address]. [id number], tel:[phone] tel:[phone] [place] [phone] 103110 tel:[phone] Arthritis Arthritis Rheumatoid Juliana GRAPHIC EDITOR-C Consulting [facility] arthritis w/o Gale. 5794 Provider: Kim [address] Dayna PLLC, 5794 PLLC factor of [place], [facility] multiple [place], 1160 [place], sitesOther [place], [facility] [place], [facility] drug [id number], [place], therapyDry eye [place]. [facility] [place], [id number], syndrome of tel:[phone] [place], [place] [address] [place], [address]. tel:[phone] lacrimal tel:[phone] glands [id number] ring Provider: Luz Meneses, John9 [facility] 200, [place], [address]. tel:[phone] Arthritis Arthritis Rheumatoid Ramiro MITCHELL Referring [facility] arthritis w/o La. 5794 Provider: Kim [address] Gideon, PLLC, 5794 PLLC factor of [place], [address] [place] [address] multiple sites [place], Ave Ari[address] [place], [place], 200, [place], [id number], [place], [address]. [id number], tel:[phone] tel:+[phone] [place] [phone] 646333 tel:[phone] Arthritis Arthritis Rheumatoid Raven Consulting [facility] arthritis w/o PA-C Provider: Kim Alvarez [address] [facility]na PLL[facility], 5794 PLLC factor of 5794 [facility] 1160 [place], sitesOther [place], [facility] [place], salvage determiner drug [place], [place], therapy [place], [facility], [id number], [id number], [place], [address]. tel:+315 tel:+315 tel:[phone] [id number] ring Provider: Luz Meneses, [address] Ari[address] 200, [place], [address]. tel:[phone] Arthritis Arthritis Rheumatoid May-3 Ramiro MITHCELL Referring [facility] Health arthritis w/o 0-201 La. 5794 Provider: Kim Alvarez [address], PLLC, 5794 PLLC factor of [place], [address] [place] [address] multiple sites [place], [address] [place], [place], 200, [place], [id number], [place], [address]. [id number], tel:+3154 tel:[phone] [place] 633708 282473 tel:[phone] Arthritis Arthritis Dry eye May-0 Juliana GRAPHIC EDITOR-C Consulting [facility] syndrome of 2-201 Gale. 5794 Provider: Kim Alvarez bilateral [address] [place] [address] [facility], [address] [facility] glandsOther [place], 1160 [place], salvage determiner drug [place], [address] [place], therapyRheumat [id number], [place], oid arthritis [place]. [facility], [id number], w/o rheumatoid tel:+315 [place], [place] 370441 [place], [address]. tel:+[phone] multiple sites tel:[phone] ring Provider: Luz Meneses, [address] Ari[address] 200, [place], [address]. tel:[phone] Arthritis Arthritis Rheumatoid Apr-0 Ramiro MITCHELL Referring [facility] arthritis w/o 4-201 La. 5794 Provider: iKm Alvarez [address], PLLC, 5794 PLLC factor of [place], [address] [place] [address] multiple sites [place], Ave [address] [place], [place], 200, [place], [id number], [place], [address]. [id number], tel:+[phone] tel:[phone] [place] [phone] 874155 tel:[phone] Arthritis Arthritis Rheumatoid Mar-0 McIlvain Consulting [facility] arthritis w/o DESIREE Diaz. Provider: Kim Alvarez rheumatoid 7 5793 [facility], 5794 PLLC factor of [facility], [facility] multiple [place], 1160 [place], sitesDry eye [place], [address] [place], syndrome of [place], [place], bilateral [id number], [facility], [id number], lacrimal [place]. [place], [place] glandsOther tel:+[phone] [place], [address]. tel:[phone] salvage determiner drug 659208 tel:[phone] therapy [id number] ring Provider: Luz Meneses, 739 [facility] 200, [place], [address]. tel:[phone] Arthritis Arthritis Rheumatoid Ramiro MITCHELL Referring [facility] arthritis w/o La. 5794 Provider: Kim Alvarez rheumatoid 7 [facility] Luz Meneses, PLLC, 5794 PLLC factor of [place], 739 Sabino [facility] multiple sites [place], Ave [address] [place], [place], 200, [place], [id number], [place], [place], [address]. [id number], tel:+[phone] tel:[phone] [place] 554948 938252 tel:[phone] Arthritis Arthritis Pain in lt Juliana GRAPHIC EDITOR-C Consulting [facility] ankleDry eye 0-201 Gale. 5794 Provider: Kim Alvarez syndrome of 7 [facility]na PLL[facility], 5794 PLLC bilateral [place], [facility], [facility] lacrimal [place], 1160 [place], glandsOther [place], [address] [place], [facility] drug [id number], [place], therapyRheumat [place]. [facility], [id number], oid arthritis tel:[phone] [place], [place] [address]403 [place], [address]. tel:+[phone] factor of tel:[phone] multiple sites [id number] ring Provider: Luz Meneses, [address] Ari[address] 200, [place], [address]. tel:[phone] Arthritis Arthritis Rheumatoid [facility] Referring [facility] arthritis w/o MD Varghese. Provider: Kim Alvarez [facility] 6 5794 Luz Meneses, PLLC, 5794 PLLC factor of [facility] 739 [facility] multiple sites [place], Ave Arik [place], [place], 200, [place], [place], [place], [place], [id number], [place], [address]. [id number], [place]. tel:+3154 [place] tel:[phone] tel:[phone] Arthritis Arthritis Rheumatoid Ramiro MITCHELL Consulting [facility] arthritis w/o La. 5794 Provider: Kim Alvarez [facility] 6 [facility]na [facility], 5794 PLLC factor of [place], [facility], [facility] multiple [place], 1160 [place], sitesOther [place], [address] [place], [facility] drug [id number], [place], therapy [place]. [facility], [id number], tel:[phone] [place], [place] 693503 [place], [address]. tel:+[phone] tel:[phone] [id number] ring Provider: Luz Meneses, [address] 200, [place], [address]. tel:[phone] Arthritis Arthritis Rheumatoid Antonio MITCHELL Referring [facility] arthritis [place]. Provider: Kim Alvarez 6 5794 Luz Meneses, PLLC, 5794 PLLC [facility] 739 Sabino [facility] [place], Ave Ari[address] [place], [place], 200, [place], [place], [place], [place], [id number], [place], [address]. [id number], [place]. tel:+[phone] [place] tel:[phone] tel:[phone] Arthritis Arthritis Dry eye Sep-0 Juliana GRAPHIC EDITOR-C Consulting [facility] syndrome of Gale. 5794 Provider: Kim Alvarez bilateral 6 [facility]na PLL[facility], 5794 PLLC lacrimal [place], [facility], [facility] glandsOther [place], 1160 [place], salvage determiner drug [place], [address] [place], therapyRheumat [id number], [place], oid arthritis [place]. [facility], [id number], w/o rheumatoid tel:+3154 [place], [place] 770750 [place], [address]. tel:+[phone] multiple sites tel:[phone] ring Provider: Marcelino Velasquez [address], [place], [address]. tel:[phone] Arthritis Arthritis Rheumatoid Aug-0 Ramiro MITCHELL Referring [facility] arthritis w/o La. 5794 Provider: Kim Alvarez rheumatoid 6 [facility] Luz Meneses, PLLC, 5794 PLLC factor of [place], [address] [place] [address] multiple sites [place], Ave [address] [place], [place], 200, [place], [id number], [place], [address]. [id number], tel:+[phone] tel:[phone] [place] 164880 545592 tel:[phone] Arthritis Arthritis Rheumatoid [facility] Consulting [facility] arthritis w/o 2 PA-C Provider: Kim Alvarez rheumatoid [address] [place] [address]. [facility]na [facility], 5794 PLLC factor of 5794 [facility], [facility] multiple [facility] 1160 [place], sitesOther [place], [address] [place], [facility] drug [place], [place], therapy [place], [facility], [id number], [id number], [place], [address]. tel:+[phone] tel:+13154 tel:[phone] [id number] ring Provider: Marcelino Velasquez [address], [place], [address]. tel:[phone] Arthritis Arthritis Rheumatoid Ramiro MITCHELL Referring [facility] arthritis 3201 La. 5794 Provider: Kim Alvarez [address] [place] [address], PLLC, 5794 PLLC [place], 739 [facility], Ave [facility], [place], 200, [place], [id number], [place], [address]. [id number], tel:[phone] tel:+[phone] [place] 240815 104706 tel:[phone] Arthritis Arthritis Rheumatoid Ramiro MITCHELL Consulting [facility] arthritis w/o La. 5794 Provider: Kim Alvarez [address] Dayna PLLC, [address] [facility] multiple [place], 1160 [place], sitesOther [place], [address] [place], salvage determiner drug [id number], [place], therapyPain in [place]. [facility], [id number], lt ankle tel:+[phone] [place] 745938 [place], [address]. tel:+[phone] tel:[phone] [id number] ring Provider: Luz Meneses, [facility] 200, [place], [address]. tel:[phone] Arthritis Arthritis Rheumatoid Dec- Ramiro MITCHELL Referring [facility] arthritis w/o La. 5794 Provider: Kim Alvarez [address], PLLC, 5794 PLLC factor of [place], 739 [facility] multiple sites [place], Ave [address] [place], [place], 200, [place], [id number], [place], [address]. [id number], tel:+[phone] tel:+[phone] [place] 491095 547457 tel:[phone] Arthritis Arthritis Dry eye Mar-2 Juliana GRAPHIC EDITOR-C Consulting [facility] syndrome of Gale. 5794 Provider: Kim Alvarez [address] [facility]na PLLC, [address] [facility] glandsOther [place], 1160 [place], salvage determ[place] drug [place], [address] [place], therapyRheumat [id number], [place], oid arthritis [place]. [facility], [id number], w/o rheumatoid tel:+[phone] [place], [place] 65[address]37 [place], [address]. tel:+[phone] multiple sites tel:[phone] [id number] ring Provider: Luz Meneses, [address], [place], [address]. tel:[phone] Arthritis Arthritis Rheumatoid Ramiro MITCHELL Referring [facility] arthritis w/o La. 5794 Provider: Kim Alvarez [address] Luz Meneses, PLLC, 5794 PLLC factor of [place], [address] [place] [address] multiple sites [place], Ave [address] [place], [place], 200, [place], [id number], [place], [address]. [id number], tel:+[phone] tel:+[phone] [place] 820193 645186 tel:[phone] Arthritis Arthritis Rheumatoid Juliana ADAMEP-Abdullahi Consulting [facility] arthritis w/o Gale. 5794 Provider: Kim Alvarez [address] [facility]na [facility], 5794 PLLC factor of [place], [facility] multiple [place], 1160 [place], sitesOther [place], [address] [place], [facility] drug [id number], [place], therapyDry eye [place]. [facility], [id number], syndrome of tel:+[phone] [place], [place] 472261 [place], [address]. tel:+[phone] lacrimal tel:[phone] glands [id number] ring Provider: Marcelino Velasquez [address], [place], [address]. tel:[phone] Arthritis Arthritis Rheumatoid Ayesha MITCHELL Referring [facility] arthritis Guilherme. Provider: Kim Alvarez 5794 RUDOLPH VelasquezC, [address], [facility], [place], 200, [place], [place], [place], [place], [id number], [place], [address]. [id number], [place]. tel:+13154 [place] tel:[phone] tel:[phone] Arthritis Arthritis Other long Nov-3 Juliana GRAPHIC EDITOR-C Consulting [facility] term drug 0-201 Gale. 5794 Provider: Kim Alvarez therapyRheumat 5 [facility], 5794 PLLC oid arthritis [place], [facility] w/o rheumatoid [place], 1160 [place], factor of [place], [address] [place], multiple [id number], [facility], sitesDry eye [place]. [facility] [place], [id number], syndrome of tel:+[phone] [place], [place] 369161 [place], [address]. tel:+13154 lacrimal tel:[phone] glands [id number] ring Provider: Luz Meneses, 739 [facility], [place], [address]. tel:[phone] Arthritis Arthritis Rheumatoid Nov-0 [facility] Referring [facility] arthritis 2-201 MD Varghese. Provider: Kim Alvarez 5 5794 Luz Meneses, [facility], 5794 PLLC [facility] 739 [facility], [facility], [place], 200, [place], [place], [place], [place], [id number], [place], [address]. [id number], [place]. tel:+13154 [place] tel:[phone] tel:[phone] Arthritis Arthritis Rheumatoid Oct-0 Juliana GRAPHIC EDITOR-C Consulting [facility] arthritis, 5-201 Gale. 5794 Provider: Kim Alvarez unspecifiedOth 5 [facility]na [facility], 5794 PLLC er salvage determiner [place], [facility] drug therapy [place], [address] [place], [place], [address] [place], [id number], [place], [place]. [facility], [id number], tel:+[phone] [facility] [place] 877738 [place], [address]. tel:+1582 tel:[phone] [id number] ring Provider: Luz Meneses, [address] [facility] 200, [place], [address]. tel:[phone] Arthritis Arthritis Aug- Juliana GRAPHIC EDITOR-C Consulting [facility] 3- Gale. 5794 Provider: Kim Alvarez 4 [facility], 5794 [facility], [place], [facility] [place], 1160 [place], [place], [facility] [place], [id number], [place], [place]. [facility], [id number], tel:+315 [facility] [place] 145047 [place], [address]. tel:+315 tel:[phone] [facility] Provider: Luz Meneses, [address] [facility] 200, [place], [address]. tel:[phone] Arthritis Arthritis Nov- Juliana GRAPHIC EDITOR-C Referring [facility] 5 Gale. 5794 Provider: Kim Alvarez 4 [facility] Luz Gideon, [facility], 5794 [facility], [facility] [place], Ave [facility], [place], 200, [place], [id number], [place], [address]. [id number], tel:+3152 tel:[phone] tel:[phone] Arthritis Arthritis Ramiro MITCHELL Referring [facility] Health [facility]. 5794 Provider: Kim Alvarez 3 [facility], [facility], 5794 [facility], 7[facility] [place], Ave [facility], [place], 200, [place], [id number], [place], [address]. [id number], tel:+3151 tel:[phone] 208502 tel:[phone] Arthritis Arthritis January- Juliana GRAPHIC EDITOR-C Referring Health Health 0-201 [place]. 5794 Provider: Kim Alvarez 3 [facility], [facility], 5794 [facility], 739 [facility] [place], [facility] [place], 200, [place], [id number], [place], [address]. [id number], tel:+3154 tel:[phone] [place] 469150 731791 tel:[phone] Arthritis Arthritis Apr-0 Juliana GRAPHIC EDITOR-C Referring [facility] 4 [facility]. 5794 Provider: Associates Associates 3 [facility], [facility], 5794 [facility], 739 [facility] [place], [facility] [place], 200, [place], [id number], [place], [address]. [id number], tel:+3154 tel:[phone] [place] 264336 792253 tel:[phone] Arthritis Arthritis Jun- Juliana GRAPHIC EDITOR-C Referring [facility] 8 [facility]. 5794 Provider: [facility] 2 [facility], [facility], 5794 [facility], 739 [facility] [place], [facility], [place], 200, [place], [id number], [place], [address]. [id number], tel:+3154 tel:[phone] 137319 tel:[phone] Arthritis Arthritis May-0 Ramiro MITCHELL Referring [facility]. 5794 Provider: [facility] 1 [facility], [facility], 5794 [facility], 739 [facility] [place], [facility], [place], 200, [place], [id number], [place], [address]. [id number], tel:+13154 tel:+[phone] [place] 249657 485805 tel:[phone] Family History Family Member Diagnosis Age At Onset Status Father Gout N Mother Osteoarthritis N Immunizations Vaccine Date Status Comments Influenza, injectable, completed - Completed reason: New quadrivalent, split virus, 18 years or older Afluria Quad 6797-2770 Yet to receive Flu vaccine completed - [...] Fluvirin Payers Payer name Insurance type Covered democrat ID Authorization(s) [employer] [id number] [employer] No Referral Required CI [employer] [id number] Social History Type Description Quantity Date Captured [...] Treatment Unknown Instructions Date Instruction Additional Information Reviewed importance of compliance/adherence to medications prescribed [...] same medication plan call if symptoms worsen Lifestyle education regarding diet Related to Body [...] same medication plan call if symptoms worsen Avoid live vaccines Exercise more Discussed importance of holding DMARDs/ biologics if patient develops an infection and to notify the treating physician Stretching Reviewed importance of compliance/adherence to medications prescribed Reviewed importance of compliance/adherence to medications prescribed Avoid live vaccines Discussed importance of holding DMARDs/ biologics if patient develops an infection and to notify the treating physician Reviewed importance of compliance/adherence to medications prescribed Diet: avoid alcohol Avoid live vaccines Exercise more Discussed importance of holding DMARDs/ biologics if patient develops an infection and to notify the treating physician Stretching
== END 2017-08-22 09:45 | disposition home or self-care (01) ==
LOC: UCCORT 08:52
DX: S93.401A Sprain of unspecified ligament of right ankle, initial encounter (principal); X50.1XXA Overexertion from prolonged static or awkward postures, initial encounter; Y92.9 Unspecified place or not applicable
CPT/HCPCS: 99211; G0463